=== PATIENT | male | born 2000 | race Caucasian/White ===

== ENCOUNTER → 2018-01-29 | Outpatient (CLI) | payer BC ==
--- NOTE | 2018-01-29 15:31 | RAD ---
Right hand, 2 views, 01/29/2018: HISTORY: Punched wall, pain No acute fracture or dislocation is identified. A dense sclerotic focus in the distal end of the proximal phalanx of the ring finger is probably a bone island. IMPRESSION: No acute bony abnormality is detected. Electronically signed by: Lucio Rendon MD (01/29/2018 3:28 PM) [facility]
== END | disposition home or self-care (01) ==
LOC: PMG 14:22
PROVIDERS: ATTEND Physician Assistant
DX: M79.641 Pain in right hand (principal)
CPT/HCPCS: 73120

== ENCOUNTER → 2019-08-26 | Outpatient (CLI) | payer BC ==
--- NOTE | 2019-08-26 16:01 | RAD ---
INDICATION: Cough COMPARISON: None. FINDINGS: Frontal and lateral views of chest obtained. No focal airspace consolidation. Cardiomediastinal contour unremarkable. No acute osseous abnormality. IMPRESSION: * No focal airspace consolidation or edema. Electronically signed by: Reji Perdomo MD (08/26/2019 3:58 PM) [id number]
[2019-08-26 16:23] LABS: BASO % 0 % (0-3); EOS % 1 % (0-3); HEMOGLOBIN 15.7 g/dL (13.0-17.5); LYMPH # 1.2 x10^3/uL (1.0-4.8); LYMPH % 20 % (24-48); MEAN CORPUSCULAR HEMOGLOBIN 30 pg (25-35); MEAN CORPUSCULAR HGB CONC 33 g/dL (31-37); MEAN CORPUSCULAR VOLUME 90 fL (79-100); MONO # 0.3 x10^3/uL (0.0-1.1); MONO % 5 % (0-9); NEUT # 4.3 x10^3uL (1.8-7.7); NEUT % 73 % (31-73); PLATELET COUNT 216 x10^3/uL (140-400); RED BLOOD COUNT 5.21 x10^6/uL (4.30-5.70); RED CELL DISTRIBUTION WIDTH 12.6 % (11.5-14.5); WHITE BLOOD COUNT 5.9 x10^3/uL (4.0-11.0)
[2019-08-26 16:27] LABS: CALCIUM 9.4 mg/dL (8.5-10.1); CREATININE 0.8 mg/dL (0.7-1.3); POTASSIUM 3.9 mmol/L (3.5-5.1)
[2019-08-26 16:50] LABS: ALBUMIN 4.9 g/dL (3.4-5.0); ALBUMIN/GLOBULIN RATIO 1.7 (1.0-1.7); TOTAL BILIRUBIN 3.8 mg/dL (0.2-1.0); TOTAL PROTEIN 7.8 g/dL (6.4-8.2)
[2019-08-27 16:16] LABS: THYROID STIM HORMONE (TSH) 2.303 uIU/mL (0.358-3.740)
== END | disposition home or self-care (01) ==
LOC: PMG 15:36
PROVIDERS: ATTEND Registered Nurse
DX: Z13.6 Encounter for screening for cardiovascular disorders (principal); R07.9 Chest pain, unspecified; R05 Cough
CPT/HCPCS: 36415; 71046; 80053; 80061; 82553; 84443; 84484; 85025; 85379

== ENCOUNTER → 2021-09-21 | Outpatient (CLI) | payer BC ==
--- NOTE | 2021-09-21 16:14 | RAD ---
Supine and upright abdomen. HISTORY: Abdominal pain, nausea and vomiting Supine and upright views were taken of the abdomen. Lung bases are clear. There is no effusion. Bowel pattern is normal. There are no abnormal air-fluid levels. There are no abnormal calcifications. IMPRESSION: 1. No bowel obstruction or acute finding in the abdomen. Electronically signed by: Ad Walsh MD (09/21/2021 4:12 PM) [facility]
== END ==
LOC: RAD 15:25
PROVIDERS: ATTEND Physician Assistant
DX: R10.13 Epigastric pain (principal)
CPT/HCPCS: 74019